=== PATIENT | female | born 1950 | race Caucasian/White ===

== ENCOUNTER 2020-04-20 04:32 | Emergency (ER) | payer MEDICARE, SELFPAY ==
[2020-04-20 04:32] VITALS: BP 171/97; PULSE 84; RESP 16; TEMP 36.5; O2SAT 100
[2020-04-20] MEDS: ONDANSETRON INJ 4 MG/2 ML VIAL IV PUSH (05:14)
--- NOTE | 2020-04-20 05:36 | ED.EPISTAXIS ---
HPI - Epistaxis General Chief complaint: Epistaxis Stated complaint: nose bleed Time Seen by Provider: 04/20/20 04:33 History of Present Illness HPI Narrative: Patient is a 6-year-old female who presents ER with epistaxis. Patient woke from sleep with her nosebleeding and was gagging on it and could not breathe. Reports she been having dryness in her nose earlier in the day and had noticed some irritation of her nose later. She had been using [place] nasal spray earlier in the day as well and developed a frontal headache after using it. No fevers or chills or sweats. No cough. Bleeding controlled at this time with pressure. Patient does not take blood thinners. Related Data Allergies Allergy/AdvReac Type Severity Reaction Status Date / Time Sulfa (Sulfonamide Allergy Unknown Rash Verified 04/20/20 04:37 Antibiotics) sulfamethoxazole Allergy Unknown Rash Verified 04/20/20 04:37 trimethoprim Allergy Unknown Rash Verified 04/20/20 04:37 Review of Systems Constitutional: Constitutional: Denies chills and Denies fever(s) ENT: Reports epistaxis, Denies nasal congestion and Denies sore throat Neurologic: Reports headache(s), Denies focal weakness and Denies numbness PMFSH Past Medical History Medical History (Updated 04/20/20 @ 05:39 by Alexsander Marie MD) Anxiety Surgical History Surgical History (Updated 04/20/20 @ 05:37 by Alexsander Marie MD) H/O sinus surgery History of gastric bypass History of hysterectomy Exam Narrative: Exam Narrative: GENERAL: Well-appearing, well-nourished, and in no acute distress. HEAD: Normocephalic, atraumatic. ENT: Clot initially present bilaterally in the nose. Irrigated. No obvious source of bleeding from the left or right side. Posterior pharynx normal appearance with uvula midline nonedematous. NEURO: Alert and oriented x3. PSYCH: Normal mood and affect. Course Course Emergency Course: Being stopped with direct pressure. Educated on therapies to prevent rebleeding. Discharge home. Vital Signs Vital signs: Vital Signs Temperature 97.7 F 04/20/20 04:32 Pulse Rate 84 04/20/20 04:32 Respiratory Rate 16 04/20/20 04:32 Blood Pressure 171/97 H 04/20/20 04:32 Pulse Oximetry 100 04/20/20 04:32 Temperature 97.7 F 04/20/20 04:32 Pulse Rate 84 04/20/20 04:32 Respiratory Rate 16 04/20/20 04:32 Blood Pressure 171/97 H 04/20/20 04:32 Pulse Oximetry 100 04/20/20 04:32 Discharge Plan Discharge Clinical Impression: Epistaxis Patient Disposition: Home, Self-Care Condition: Stable Instructions: Nosebleed (ED) Additional Instructions: Return to the ER if you have severe uncontrolled bleeding that lasts longer than 20 minutes, you lose consciousness, or you are not able to breathe. After a severe episode of nosebleeding you may have a bowel movement that appears to have blood in it. This is due to the fact that you have swallowed a lot of blood. In order to prevent nosebleeds it is recommended that you use [place] nasal spray to increase moisture in your nose, you apply Vaseline as a barrier cream with a Q-tip, and that you use a humidifier/vaporizer in your bedroom at night. If you have oxymetazoline (Afrin) available, this can be used twice a day for no longer than 3 days. It can help control your bleeding. You may use claritin or zyrtec as nasal decongestants if your have a runny/stuffy nose. Follow-up/Referrals: KATHRYN,CARTER Guillen M.D. [Primary Care Provider] - 1 Week
[2020-04-20 05:46] VITALS: BP 137/84; PULSE 76; RESP 16; TEMP 36.6; O2SAT 100
== END 2020-04-20 05:47 | disposition home or self-care (01) ==
PROVIDERS: Emergency Provider Emergency Medicine; PCP Internal Medicine
DX: R04.0 Epistaxis (principal)
CPT/HCPCS: 96374; 99284; J2405

== ENCOUNTER 2022-09-28 13:41 | Outpatient (NON) | payer MEDICARE, SELFPAY | END 2022-09-28 13:42 | disposition home or self-care (01) | LOC: ANHLAB 09-29 13:44 | PROVIDERS: Visit Provider Nurse Practitioner | DX: L30.8 Other specified dermatitis (principal) | CPT/HCPCS: 88305 ==

== ENCOUNTER 2024-02-15 12:51 | Outpatient (CLI) | payer MEDICARE, SELFPAY ==
--- NOTE | ~2024-02-15 | XR_ITS ---
XR sacrum coccyx min 2V Ordering provider: Rosibel Coombs History: . sensory urge incontinence . Comparison: None. FINDINGS: BONES: No acute fracture or dislocation. Left spinal stimulator. Severe bending of the coccyx. 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 JOINTS: The sacroiliac joint spaces are normal. SOFT TISSUES: Normal. IMPRESSION: No acute osseous abnormality sacrum. Reviewed, dictated and finalized at location A. [facility]
== END 2024-02-15 12:52 | disposition home or self-care (01) ==
LOC: ANHIMG 13:08
DX: N39.41 Urge incontinence (principal)
CPT/HCPCS: 72220